=== PATIENT | female | born 1990 | race Caucasian/White ===

== ENCOUNTER 2016-09-26 20:31 | Emergency (ER) | payer OTHER ==
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
[2016-09-26 22:00] VITALS: BP 133/80
--- OUTSIDE RECORDS SUMMARY | 2016-09-26 22:07 | XMS REPORT | Continuity of Care Document ---
:1990 Author Organization [facility] ([facility]) Address [address] [place] [address] Phone [phone] Care Team Providers Name Role Phone Aric Vargas Primary Care Provider [phone] Source Comments This disclosure is being made pursuant to the Care Everywhere program, applicable federal and state laws, and may not contain all informaitonavailable regarding this patient.[facility] ([facility]) Active Allergies and Adverse Reactions No Known Allergies Current Medications Prescription Sig. Disp. Refills Start Date End Date Status metoclopramide 10 mg Take 10 mg by mouth Active tablet before meals and at bedtime as needed. Take with Benadryl 50 mg before meals and repeat within 30 minutes as needed. Indications: Morning sickness diphenhydrAMINE 50 mg Take 50 mg by mouth Active capsule before meals and at bedtime as needed. Take with Metoclopramide before meals and repeat within 30 minutes as needed. Indications: NAUSEA AND VOMITING Active Problems Problem Noted Date Depression 08/03/2012 Suicidal thoughts 08/03/2012 Social History Tobacco Use Types Packs/Day Years Used Date Never Assessed Last Filed Vital Signs Vital Sign Reading Time Taken Blood Pressure 133/70 08/03/2012 1:57 PM [employer] Pulse 105 08/03/2012 1:57 PM [employer] Temperature 35.7 C (96.3 F) 08/03/2012 9:10 AM [employer] Respiratory Rate 16 08/03/2012 1:57 PM [employer] Height 1.548 m (5' 0.94") 07/09/2006 5:09 PM [employer] Weight 65.3 kg (143 lb 15.4 oz) 07/09/2006 5:09 PM [employer] Body Mass Index 27.25 07/09/2006 5:09 PM [employer] Oxygen Saturation 99% 08/03/2012 9:10 AM [employer]ING [employer]ATION [employer]INE[employer] Plan of Care Health Maintenance Due Date Last Done Comments Hepatitis B Vaccine (1 of 3 - Primary Series) 1992 HPV Vaccine (1 of 3 - Female/Unknown 3 Dose Series) 2003 Tdap Vaccine 2003 Cervical Cancer Screening 2010 Lipid Disorder Screening 2010 MMR Vaccine 2010 Td Vaccine 2010 Varicella Vaccine (1 of 2 - Adult - No Evidence of 2010 Immunity) Influenza Vaccine: Seasonal (#1) 01/22/2016 Results from Last 3 Months Not on file
== END 2016-09-26 21:51 | disposition home or self-care (01) ==
LOC: ER 20:31
PROC: 2W3RX1Z Immobilization of Left Lower Leg using Splint (ICD-10-PCS; principal; 2016-09-26)
DX: S93.492A Sprain of other ligament of left ankle, initial encounter (principal); X50.1XXA Overexertion from prolonged static or awkward postures, initial encounter; Z33.1 Pregnant state, incidental

== ENCOUNTER 2017-01-31 11:18 | Inpatient (IN) | payer OTHER ==
[2017-01-31] MEDS ORDERED: METOCLOPRAMIDE HCL 5 MG/ML VIAL IV PRN ×2 (11:52→18:11)
[2017-01-31] MEDS ORDERED: RINGER'S SOLUTION,LACTATED 1,000 ML IV ONE ×2 (11:53→14:04)
[2017-01-31] MEDS ORDERED: diphenhydrAMINE HCL 50 MG/ML VIAL IV ONE ×2 (12:15→18:15)
[2017-01-31] MEDS ORDERED: LIDOCAINE HCL 50 ML VIAL PERI PRN (14:04)
[2017-01-31] MEDS ORDERED: DEXTROSE 5%-LACTATED RINGERS 1,000 ML IV PRN (14:04)
[2017-01-31] MEDS ORDERED: ONDANSETRON HCL/PF 2 MG/ML VIAL IV PRN ×2 (14:04→15:37)
[2017-01-31] MEDS ORDERED: OXYTOCIN/DEXTROSE 5%-WATER 30 UNITS/500 ML BAG IV ONE ×2 (14:04→20:48)
--- NOTE | 2017-01-31 14:23 | PN ---
Progess Note - Interim Narrative: 01/31/17 14:21 Patient rating her contractions as mild. Headache resolved after 1 dose of Benadryl and Reglan. Vital signs stable. FHT: 140 baseline, reassuring Contractions q 2-3 min Cervix: 5/90/-2, AROM clear Impression: Intrauterine at 38-3/7 weeks in labor Plan: Continue present plan
[2017-01-31] MEDS ORDERED: BUPIVACAINE HCL/0.9 % NACL/PF 250 ML EP PRN (15:37)
[2017-01-31] MEDS ORDERED: NALOXONE HCL 1 MG/1 ML SYRG IV PRN (15:37)
[2017-01-31] MEDS ORDERED: fentaNYL CITRATE/PF 50 MCG/ML AMPUL IT SCH (15:45)
--- NOTE | 2017-01-31 16:48 | OR ---
Anesthesia Procedure Note - Anesthesia Procedure Note Narrative: Vital Signs - Last Taken Temp 37.1 C 01/31/17 15:53 Pulse 99 01/31/17 15:53 Resp 20 01/31/17 15:53 BP 117/68 01/31/17 15:53 Pulse Ox 99 01/31/17 15:53 01/31/17 16:48 ANESTHESIA PROCEDURE NOTE Date of Procedure: 01/31/2017 Time of procedure: 1610. Performed by: Isma Rodrigues CRNA [employer]ductor Technician: None. Preprocedure diagnosis: Active labor. Post procedure diagnosis: Same. Procedure: Insertion of labor epidural. Indications: The patient is a 26 -year-old multigravida female in active labor requesting labor epidural for pain management. Findings: See below. Details of the procedure: The patient was placed in a sitting position. Back was prepped with DuraPrep. Patient was then draped in a sterile fashion. Lidocaine 1% was infiltrated to the skin and subcutaneous tissues at the level of the L3 4 interspace. The epidural space was identified using a 18-gauge Tuohy needle with [id number] technique. 20 mcg fentanyl was given intrathecally using a 27 ga. spinal needle. Epidural catheter was inserted without difficulty. Negative test dose was elicited using 5 mL of 1.5% preservative-free lidocaine plus epinephrine 1 200,000. The epidural catheter was then taped and secured in place. EBL: Minimal. Fluids: N/A. Specimen: N/A. Post procedure condition: The patient tolerated the procedure well. No complications were noted. Thank you for this consultation. Thorpe CRNA
[2017-01-31] MEDS ORDERED: oxyCODONE HCL/ACETAMINOPHEN 1 TAB TABLET PO PRN ×2 (20:48)
[2017-01-31] MEDS ORDERED: HYDROCORTISONE 30 APPL TUBE TP PRN (20:48)
[2017-01-31] MEDS ORDERED: BENZOCAINE/MENTHOL 81 SPRAY CAN TP PRN (20:48)
[2017-01-31] MEDS ORDERED: BISACODYL 10 MG SUPP.RECT RC PRN (20:48)
[2017-01-31] MEDS ORDERED: GLYCERIN/WITCH HAZEL LEAF 40 APPL BOX TP PRN (20:48)
[2017-01-31] MEDS ORDERED: SENNOSIDES 8.6 MG TABLET PO PRN (20:48)
--- NOTE | 2017-01-31 21:01 | OR ---
Operative Report - Dictated Report Narrative: Spontaneous vaginal delivery of viable male at 2028 on 01/31/2017 with Apgars 8 and 9, weighing 3778 g in GYPSY position. Tight nuchal cord 1. Body cord 1. Shoulder dystocia of right anterior shoulder. Maneuvers tried were: Rob maneuver, corkscrew maneuver (both clockwise and counterclockwise), attempt at delivering the posterior shoulder, and finally suprapubic pressure which resulted in delivery of the right anterior shoulder. Total time from delivery of head to rest of the body was approximately 2-1/2 minutes. CPAP was given for approximately 30 seconds on the mother's abdomen until cord clamping was performed. Cord clamping delayed approximately 1 minute Placenta delivered complete, intact, with three vessel cord Estimated blood loss: 200 mL, responded to uterine massage and Pitocin 20 mu/ min. Lacerations: None Shoulder dystocia discovered after delivery of head. Estimated weight of 3800 g. No injury observed of fetus or mother. Mother caution to avoid delivering larger than a 3800 g baby in the future. In addition to myself, nurses Sami Gunderson and Madeline Chan were present for delivery. History for Definition: * The number of deliveries resulting in a live the patient experienced prior to current hospitalization * The previous delivery of live twins or any live multiple gestation is considered one live event. *If primagravida or nulliparous is documented select zero for the number of previous live births. Live Events: 3
[2017-02-01] MEDS: IBUPROFEN 800 MG TABLET PO PRN ×2 (03:22→18:56)
[2017-02-01] MEDS: DOCUSATE SODIUM 100 MG CAPSULE PO SCH ×3 (03:22→21:25)
[2017-02-01] MEDS: PRENATAL VITS96/IRON FUM/FOLIC 1 TAB TABLET PO SCH ×2 (07:55→09:36)
[2017-02-01] MEDS: FERROUS SULFATE 325 MG TABLET PO SCH (09:36)
--- NOTE | 2017-02-01 22:30 | PN ---
Subjective - Date and Time Seen Date: 02/01/17 Time: 22:30 Objective - Vitals Vitals: Last Vital Signs Temp 35.9 C L 02/01/17 20:16 Pulse 84 02/01/17 20:16 Resp 16 02/01/17 20:16 BP 119/70 02/01/17 20:16 Pulse Ox 97 02/01/17 11:11 Patient denies complaints. Lochia wnl Abdomen - soft, nontender Uterus - firm, at umbilicus - 1 No calf tenderness Impression: day #1 - s/p spontaneous vaginal delivery. Anemia- stable. Plan: Continue routine care
[2017-02-02] MEDS: IBUPROFEN 800 MG TABLET PO PRN ×2 (00:26→08:17)
[2017-02-02 07:19] VITALS: BP 127/87
[2017-02-02] MEDS: PRENATAL VITS96/IRON FUM/FOLIC 1 TAB TABLET PO SCH (08:17)
[2017-02-02] MEDS: FERROUS SULFATE 325 MG TABLET PO SCH (08:17)
[2017-02-02] MEDS: DOCUSATE SODIUM 100 MG CAPSULE PO SCH (08:17)
--- NOTE | 2017-02-02 08:40 | PN ---
Subjective - Date and Time Seen Date: 02/02/17 Time: 08:39 Objective - Vitals Vitals: Last Vital Signs Temp 36.2 C L 02/02/17 07:14 Pulse 65 02/02/17 07:14 Resp 18 02/02/17 07:14 BP 127/87 02/02/17 07:14 Pulse Ox 98 02/02/17 07:14 Patient denies complaints. Lochia wnl Abdomen - soft, nontender Uterus - firm, at umbilicus - 2 No calf tenderness Impression: day #2 - s/p spontaneous vaginal delivery. Anemia- stable. Desires permanent sterilization. Plan: Routine discharge instructions. Continue iron twice a day. Follow-up in the office in 3 weeks for scheduling of tubal ligation..
== END 2017-02-02 14:10 | disposition home or self-care (01) | DRG 775 ==
LOC: OBCLINIC 11:18 → OB 13:56
PROVIDERS: ADMIT Obstetrics & Gynecology; ATTEND Obstetrics & Gynecology
PROC: 10E0XZZ Delivery of Products of Conception, External Approach (ICD-10-PCS; principal; 2017-01-31)
PROC: 10907ZC Drainage of Amniotic Fluid, Therapeutic from Products of Conception, Via Natural or Artificial Opening (ICD-10-PCS; 2017-01-31)
PROC: 4A1HXCZ Monitoring of Products of Conception, Cardiac Rate, External Approach (ICD-10-PCS; 2017-01-31)
PROC: 00HU33Z Insertion of Infusion Device into Spinal Canal, Percutaneous Approach (ICD-10-PCS; 2017-01-31)
DX: O69.1XX0 Labor and delivery complicated by cord around neck, with compression, not applicable or unspecified (principal); O66.0 Obstructed labor due to shoulder dystocia; R51 Headache; Z3A.38 38 weeks gestation of pregnancy; Z37.0 Single live birth

== ENCOUNTER 2017-03-05 06:56 | Day surgery (SDC) | payer OTHER ==
[~2017-03-05 06:56] MED LIST: RINGER'S SOLUTION,LACTATED 1,000 ML IV PRN
[2017-03-05] MEDS ORDERED: RINGER'S SOLUTION,LACTATED 1,000 ML IV ONE ×2 (07:31→08:40)
[2017-03-05] MEDS ORDERED: LIDOCAINE HCL/EPINEPHRINE 50 ML VIAL IJ ONE (08:18)
--- NOTE | 2017-03-05 09:07 | OR ---
Operative Report - Dictated Report Narrative: INDICATION: year old female desires permanent sterilization PREOPERATIVE DIAGNOSIS: Multiparity, desires permanent sterilization POSTOPERATIVE DIAGNOSIS: Multiparity, desires permanent sterilization OPERATION: Laparoscopic bilateral tubal fulguration SURGEON: Geetha Banerjee D.O. DIRECTOR BUSINESS: Ari ANESTHESIA: General ESTIMATED BLOOD LOSS: Minimal FLUID REPLACEMENT: 1000 mL URINE OUTPUT: Not measured FINDINGS: Normal uterus, tubes, and ovaries SPECIMEN(S): None DRAINS: none TECHNIQUE: The patient was taken to the operating room and placed in dorsal lithotomy position after adequate general anesthesia was obtained. The anterior lip of the cervix was grasped with a long Allis clamp and a Valchev manipulator was inserted into the cervical canal and attached to the Allis clamp as a means to manipulate the uterus. The bladder was drained prior to patient entering the OR. Gloves were changed and attention was turned to the abdomen where the umbilicus and suprapubic region were injected with a 1% lidocaine epinephrine solution through the layers of the abdomen. A scalpel was used to score the skin and a 12 mm non-bladed trocar was inserted via direct technique under direct visualization. Pneumoperitoneum was created with CO2 gas. A 5 mm non-bladed trocar was inserted suprapubically in a similar fashion. Through these 2 ports the surgery was carried out with findings as noted above. The right fallopian tube was identified and followed out to the fimbriated end. Approximately 3 cm of the fallopian tube was coagulated with the Kleppinger's approximately 2 cm from the cornual region. The exact same was done on the patient's left side. The CO2 gas was removed from the abdominal cavity. Trochars were removed under direct visualization. The fascia of the 12 mm port was closed with a single 0 Vicryl suture. The skin of both incisions was closed with 4-0 Monocryl and Dermabond. Instruments were removed from the cervix and vagina. Sponge, lap, instrument, and needle count were correct x 2. DISPOSITION: The patient was awakened and transferred to post anesthesia care unit in good condition.
[2017-03-05] MEDS ORDERED: MORPHINE SULFATE 2 MG/ML DISP.SYRIN IV PRN (09:36)
[2017-03-05] MEDS ORDERED: oxyCODONE HCL/ACETAMINOPHEN 1 TAB TABLET PO PRN (09:37)
[2017-03-05 11:52] VITALS: BP 108/52
== END 2017-03-05 06:57 | disposition home or self-care (01) ==
LOC: AMB 06:56
PROVIDERS: ATTEND Obstetrics & Gynecology
PROC: 0U574ZZ Destruction of Bilateral Fallopian Tubes, Percutaneous Endoscopic Approach (ICD-10-PCS; principal; 2017-03-05 08:00)
DX: Z30.2 Encounter for sterilization (principal); D64.9 Anemia, unspecified; E66.9 Obesity, unspecified; Z68.36 Body mass index [BMI] 36.0-36.9, adult; Z87.891 Personal history of nicotine dependence

== ENCOUNTER 2017-04-23 07:57 | Emergency (ER) | payer OTHER ==
[2017-04-23 08:07] VITALS: BP 123/80
--- NOTE | 2017-04-23 08:17 | ERNOTE ---
ENT HPI Time Seen by Provider: 04/23/17 08:09 Source: patient - Immun/Allergies/Home Medications Immunizations: IMMUNIZATION HX Immunizations Up to Date Yes History of Influenza Vaccine Yes Allergies/Adverse Reactions: Allergies Allergy/AdvReac Type Severity Reaction Status Date / Time No Known Allergies Allergy Verified 04/23/17 08:08 Home Medications: HOME MEDICATIONS Escitalopram Oxalate [Lexapro] 10 mg PO DAILY 04/23/17 [Last Taken Unknown] Penicillin V Potassium [Pen-Vee K] 500 mg PO QID #40 tab 04/23/17 [Last Taken Unknown] traMADol HCL [Ultram] 50 mg PO DAILY #20 tablet 04/23/17 [Last Taken Unknown] - History of Present Illness Narrative: Here for dental pain which pt has had for three days and unable to see her dentist. She does have a PCP Review of Systems - Review of Systems Constitutional: Present: no symptoms reported EYE: Present: no symptoms reported ENT: Present: See HPI Respiratory: Present: no symptoms reported Cardiology: Present: no symptoms reported Gastrointestinal/Abdominal: Present: no symptoms reported Genitourinary: Present: no symptoms reported Musculoskeletal: Present: no symptoms reported Skin: Present: no symptoms reported - Patient's Past Medical History Patient History - Medical: Anemia, ADHD, Anxiety Patient History - Cardiac/Respiratory: No pertinent hx Patient History - Cancer: No Hx of Cancer Patient History - Surgical Procedures: No surgical history Patient History - Other: None - Family History Father Family History - Medical: No pertinent hx Family History - Cardiac/Respiratory: Hypertension Family History - Cancer: No pertinent family hx Mother Family History - Medical: No pertinent hx Family History - Cardiac/Respiratory: No pertinent hx Family History - Cancer: No pertinent family hx - Social History Living Situations: home Abuse History: No History of abuse Psych History: Hx of Anxiety, Hx of Depression Alcohol Use: none Drug Use: none - Immunizations Immunizations Up to Date: Yes History of Influenza Vaccine: Yes Physical Exam - Physical Exam General Appearance: Present: wd/wn, alert, no apparent distress Head Exam: Present: normal inspection, no evidence of injury Eye Exam: Normal inspection: bilateral, PERRL: bilateral, EOMI: bilateral Ears, Nose, Throat: Present: normal pharynx, other - this patient does have some swelling in the gingival area in the area of tooth #19 and also in tooth # 33. There are caries noted on both of those teeth. There are no fractures noted at this time. Ears are completely normal throat is normal there is no lymphadenopathy. ED Progress - Vital Signs Patient's Vital Signs:: I have reviewed the patient's vital signs. Vital Signs: Vital Signs 04/23/17 08:04 Temperature 36.8 C Pulse Rate 65 Respiratory 12 Rate Blood Pressure 123/80 O2 Sat by Pulse 98 Oximetry - Progress/Reassessment Chief Complaint: Dental Problem Departure Clinical Impression: Dental abscess, Caries - Departure Disposition: Home self-care Condition: Good Instructions: Dental Care and Dentist Visits Referrals: Amy Hernandez FNP [Primary Care Provider] - Prescriptions: Penicillin V Potassium [Pen-Vee K] 500 mg PO QID #40 tab traMADol HCL [Ultram] 50 mg PO DAILY #20 tablet
== END 2017-04-23 08:24 | disposition home or self-care (01) ==
LOC: ER 07:57
DX: K04.7 Periapical abscess without sinus (principal)